=== PATIENT | male | born 2000 | race Hispanic/Latino ===

== ENCOUNTER 2023-11-13 21:18 | Emergency (ER) | payer SELFPAY ==
[~2023-11-13] VITALS: Ht 162.6 cm; Wt 72.0 kg
[2023-11-13 21:30] VITALS: BP 145/85
[2023-11-13 21:49] LABS: BASO% 0.3 % (0-3); EOS% 1.4 % (0-8); HEMATOCRIT 41.5 % (39.0-50.0); HEMOGLOBIN 14.1 g/dl (14.0-18.0); IMMATURE GRANULOCYTES 0.3 % (0.0-5.0); LYMPH% 21.7 % (15-41); MEAN CELL VOLUME 85.9 fL CALC (80.0-100.0); MEAN CORPUSCULAR HGB 29.2 pG CALC (26.0-32.0); MONO% 7.2 % (2-13); NEUT# 6.69 thou/uL (1.82-7.42); NEUT% 69.1 % (42-76); RED BLOOD COUNT 4.83 mill/uL (4.70-6.10); RED CELL DISTRI WIDTH 11.7 % (11.5-15.5)
[2023-11-13 22:22] VITALS: BP 145/85
== END 2023-11-13 22:22 | disposition home or self-care (01) | DRG 153 ==
LOC: ED 21:18
PROVIDERS: Family Medicine
DX: J06.9 Acute upper respiratory infection, unspecified (principal); Z20.822 Contact with and (suspected) exposure to COVID-19